=== PATIENT | male | born 1970 ===

== ENCOUNTER 2020-07-06 10:30 | Inpatient (IN) | payer OTHER ==
[~2020-07-06] VITALS: Ht 165.1 cm; Wt 74.8 kg
[2020-07-06] MEDS ORDERED: ATORVASTATIN CA10 MG PO (13:44)
[2020-07-06] MEDS ORDERED: COZAAR25 MG PO (13:44)
[2020-07-06] MEDS ORDERED: FORTAMET1000 MG PO (13:45)
[2020-07-06] MEDS ORDERED: HUMULIN N100 UNIT/2 (13:45)
[2020-07-10] MEDS ORDERED: OMEPRAZOLE20 MG (14:05)
[2020-07-12] MEDS ORDERED: PERCOCET 5-3251 EACH PO (11:47)
== END 2020-07-12 15:12 | disposition home or self-care (01) | DRG 330 ==
LOC: O/R 07-10 06:55 → SURH 07-10 06:55
PROVIDERS: ADMIT Surgery; ATTEND Surgery
PROC: 0DTN4ZZ Resection of Sigmoid Colon, Percutaneous Endoscopic Approach (ICD-10-PCS; 2020-07-10)
PROC: 07BC4ZZ Excision of Pelvis Lymphatic, Percutaneous Endoscopic Approach (ICD-10-PCS; 2020-07-10)
PROC: 0DJD8ZZ Inspection of Lower Intestinal Tract, Via Natural or Artificial Opening Endoscopic (ICD-10-PCS; 2020-07-10)
PROC: 0DTP4ZZ Resection of Rectum, Percutaneous Endoscopic Approach (ICD-10-PCS; principal; 2020-07-10 12:45)
DX: D12.7 Benign neoplasm of rectosigmoid junction (principal); K56.690 Other partial intestinal obstruction; K62.5 Hemorrhage of anus and rectum; R59.0 Localized enlarged lymph nodes; K57.30 Diverticulosis of large intestine without perforation or abscess without bleeding; D64.9 Anemia, unspecified; I11.9 Hypertensive heart disease without heart failure; E78.5 Hyperlipidemia, unspecified; E11.9 Type 2 diabetes mellitus without complications; E03.8 Other specified hypothyroidism

== ENCOUNTER 2020-07-08 05:20 | Day surgery (SDC) | payer OTHER ==
[~2020-07-08 05:20] MED LIST: ATORVASTATIN CA10 MG PO; COZAAR25 MG PO; FORTAMET1000 MG PO; HUMULIN N100 UNIT/2
== END 2020-07-08 09:40 | disposition home or self-care (01) ==
LOC: CIR.AMB 05:20
PROVIDERS: ATTEND Surgery
DX: K62.89 Other specified diseases of anus and rectum (principal); K64.8 Other hemorrhoids; Z12.11 Encounter for screening for malignant neoplasm of colon